=== PATIENT | male | born 1970 | race African-American/Black ===

== ENCOUNTER 2017-06-06 08:02 | Emergency (ER) | payer SELFPAY ==
[~2017-06-06] VITALS: Ht 177.8 cm; Wt 90.0 kg
[~2017-06-06 08:02] MED LIST: BACL10TA PO; DICL75 PO
[2017-06-06 08:06] VITALS: BP 160/80; PULSE 61; RESP 18; TEMP 98.6; O2SAT 99
--- NOTE | 2017-06-06 08:18 | PD ---
HPI Chief Complaint: Musculoskeletal Complaint Time Seen by Provider: 08:14 Travel History International Travel<30 days: No Contact w/Intl Traveler<30days: No Traveled to known affect area: No History of Present Illness HPI 47-year-old male presents emergency Department with complaint of left posterior ankle pain after tripping and injuring it on Monday night. He did not fall; he says he caught himself. Denies paresthesias, loss of sensation to the affected extremity. Has been ambulatory on the affected extremity. Symptoms are mild in severity. Has not taken any medications or tried any treatments to alleviate his symptoms. Pain is aggravated with palpation and ambulation. No known allergies. Has no medical complaints. No other modifying factors or associated signs and symptoms. PFSH Past Medical History Arthritis: Yes (RHEUMATOID) Diminished Hearing: No Musculoskeletal: Yes (CHRONIC BACK PAIN,C,L SPINE HERNIATED DISCKS) Social History Alcohol Use: Yes (RARELY) Tobacco Use: Yes (1/2 PPD) Substance Use: No Allergies-Medications (Allergen,Severity, Reaction): Coded Allergies: No Known Allergies (Verified , 06/06/17) Reported Meds & Prescriptions Reported Meds & Active Scripts Active Ibuprofen 800 Mg Tab 800 Mg PO Q6HR PRN Review of Systems Except as stated in HPI: all other systems reviewed are Neg Physical Exam Narrative GENERAL: Well-nourished, well-developed black male patient, in no acute distress SKIN: Warm and dry. HEAD: Atraumatic. Normocephalic. EYES: Pupils equal and round. No scleral icterus. No injection or drainage. ENT: Mucosa pink and moist. Airway patent. NECK: Trachea midline. CARDIOVASCULAR: Regular rate. RESPIRATORY: No accessory muscle use. GASTROINTESTINAL: Flat. MUSCULOSKELETAL: Left ankle with point tenderness on palpation to the posterior aspect; without erythema, edema, ecchymosis; no obvious deformity; sensory intact; 2+ pedal pulse. No obvious deformities. No clubbing. No cyanosis. No edema. NEUROLOGICAL: Awake and alert. Oriented 3. No obvious cranial nerve deficits. Motor grossly within normal limits. Normal speech. PSYCHIATRIC: Appropriate mood and affect; insight and judgment normal. Data Data Last Documented VS Vital Signs Date Time Temp Pulse Resp B/P (MAP) Pulse Ox O2 Delivery O2 Flow Rate FiO2 06/06/17 09:45 06/06/17 08:06 98.6 61 18 99 Orders Orders Ankle, Complete ([id number]) (06/06/17 08:14) Crutches (06/06/17 08:14) Ibuprofen (Motrin) (06/06/17 08:30) Splint Or Brace Apply/Monitor (06/06/17 09:33) [facility] Medical Decision Making Medical Screen Exam Complete: Yes Emergency Medical Condition: Yes Medical Record Reviewed: Yes Differential Diagnosis Ankle sprain, ankle fracture, ankle injury Narrative Course 27-year-old male with left ankle injury. Ibuprofen administered in the ER. Left Ankle x-ray ordered. 926: Left ankle x-ray concludes: Last 24 hours Impressions Ankle X-Ray 06/06/17813 Signed Impressions: Service Date/Time: Tuesday, June 06, 2017 08:45 - CONCLUSION: 1. No acute findings. Calcifications near the insertion of the Achilles tendon. William Pack MD Findings of the x-ray report were discussed with the patient patient was provided a copy of the x-ray report. Ji bandage, ankle stirrup splint and crutches provider for support. Ibuprofen prescribed for home. Instructed patient to follow up with orthopedics. Instructed patient to follow up with primary care provider. Patient verbalizes understanding and agreement with treatment plan. Patient is medically cleared and stable for discharge. Discussed reasons to return to the emergency department. Patient agrees with treatment plan. The patients vital signs are stable and the patient is stable for outpatient follow-up and treatment. Patient discharged home, stable and in no acute distress. Diagnosis Primary Impression: Left ankle injury Qualified Codes: S99.912A - Unspecified injury of left ankle, initial encounter Referrals: Orthopaedic Surgeon Primary Care Physician Patient Instructions: Ankle Sprain (ED), General Instructions Additional Instructions: Tylenol or ibuprofen as directed and as needed for pain and inflammation Rest, ice, compress, and elevate extremity to decrease pain and inflammation Ankle Brace for support Crutches for support Avoid aggravating activity; increase activity as tolerated Follow-up with primary care provider Return to the emergency department immediately with worsening of symptoms Med/Other Pt SpecificInfo: Prescription(s) given Scripts Ibuprofen (Ibuprofen) 800 Mg Tab 800 MG PO Q6HR Y for PAIN, #30 TAB 0 Refills Prov: Alicia Sanchez 06/06/17 Disposition: 01 DISCHARGE HOME Condition: Stable Alicia Sanchez Jun 06, 2017 08:18
[2017-06-06] MEDS ORDERED: IBUPROFEN 800 MG TAB PO ONE (08:30)
--- NOTE | 2017-06-06 09:18 | RADRPT ---
EXAM DATE/TIME: 06/06/2017 08:45 [facility] COMPARISON: No previous studies available for comparison. INDICATIONS : Fell off a curb 2 days ago and twisted left ankle, pain and swelling on medial and lateral sides MEDICAL HISTORY : None. SURGICAL HISTORY : None. ENCOUNTER: Initial ACUITY: 2 days PAIN SCORE: 8/10 LOCATION: Left ankle FINDINGS: Three view exam was performed of the left ankle. The bony structures are in normal alignment. No ev idence of fracture, dislocation, or soft tissue swelling. The ankle mortise is intact. No radiopaqu e foreign bodies are seen. Bony mineralization is normal. CONCLUSION: 1. No acute findings. Calcifications near the insertion of the Achilles tendon. William Pack MD on June 06, 2017 at 9:14 Board Certified Radiologist. This report was verified electronically.
[2017-06-06] MEDS ORDERED: IBUP800T23 PO (09:30)
== END 2017-06-06 09:48 | disposition home or self-care (01) ==
LOC: NEPK 08:02
DX: S99.912A Unspecified injury of left ankle, initial encounter (principal); X50.1XXA Overexertion from prolonged static or awkward postures, initial encounter; M06.9 Rheumatoid arthritis, unspecified
CPT/HCPCS: 73610; 99283; E0113; L1906